=== PATIENT | male | born 1970 | race Caucasian/White ===

== ENCOUNTER 2016-09-30 15:56 | Emergency (ER) | payer OTHER ==
[2016-09-30 16:16] VITALS: BMI 19.5
[2016-09-30 16:18] VITALS: TEMP 98
--- NOTE | 2016-09-30 17:09 | ED PDOC ---
Arrival/HPI - General Chief Complaint: Abnormal Skin Integrity Time Seen by Provider: 09/30/16 16:18 Historian: Patient - History of Present Illness Narrative History of Present Illness (Text): 09/30/16 17:06 46-year-old male presents today with a three-day history of left leg rash. Patient states he has been minimally painful slightly pruritic worsening rash to the left leg. Patient states the rash started out as some bumps along the anterior aspect of the thigh. He states the rash does not spread into the groin or the testicles. He denies fevers or chills. He denies nausea or vomiting. Patient states he has a history of HIV with an undetectable viral load. Patient states he is followed by Dr. Roberto and has an appointment scheduled for next week. Past Medical History - Provider Review Nursing Documentation Reviewed: Yes - Travel History Have you recently traveled outside [place] w/in the past 3 mons?: No - Infectious Disease Hx of Infectious Diseases: None - Tetanus Immunization Tetanus Immunization: Up to Date - Cardiac Hx Hypertension: Yes - Pulmonary Hx Pneumonia: Yes - Neurological Hx Neurological Disorder: No - HEENT Hx HEENT Disorder: No - Renal Hx Renal Disorder: No Hx Renal Failure: Yes - Endocrine/Metabolic Hx Endocrine Disorders: No - Hematological/Oncological Hx Blood Disorders: Yes Hx Hepatitis C: No - Integumentary Hx Dermatological Disorder: No - Musculoskeletal/Rheumatological Hx Falls: No - Gastrointestinal Hx Gastrointestinal Disorders: No Hx Diarrhea: (X 5D 12) Hx Gastroesophageal Reflux: Yes Hx Nausea: (X 5 D 05-29-12) - Genitourinary/Gynecological Hx Genitourinary Disorders: No - Psychiatric Hx Psychophysiologic Disorder: No Hx Depression: No Hx Emotional Abuse: No Hx Physical Abuse: No Hx Substance Use: Yes (weed) - Past Surgical History Past Surgical History: No Previous - Anesthesia Hx Anesthesia: Yes Hx Anesthesia Reactions: No Hx Malignant Hyperthermia: No - Suicidal Assessment Feels Threatened In Home Enviroment: No Family/Social History - Physician Review Nursing Documentation Reviewed: Yes Family/Social History: Unknown Family HX Smoking Status: Heavy Smoker > 10 Cigarettes Daily Hx Alcohol Use: No Hx Substance Use: Yes (weed) Substance used: marijuana Allergies/Home Meds Allergies/Adverse Reactions: Allergies No Known Allergies Allergy (Verified 09/30/16 16:16) Home Medications: Home Meds Medication Instructions Recorded Confirmed Lopinavir/Ritonavir [Kaletra 1 each PO DAILY 04/27/16 05/04/16 100-25 mg Tablet] Review of Systems - Review of Systems Constitutional: absent: Fatigue, Fevers Respiratory: absent: SOB, Cough Cardiovascular: absent: Chest Pain, Palpitations Gastrointestinal: absent: Abdominal Pain, Constipation, Diarrhea, Nausea, Vomiting Musculoskeletal: absent: Arthralgias Skin: Rash, Pruritis Physical Exam Vital Signs Reviewed: Yes Vital Signs Temp Pulse Resp BP Pulse Ox 09/30/16 18:19 97 H 16 110/64 98 09/30/16 17:30 105 H 09/30/16 17:00 111 H 09/30/16 16:17 98.0 F 121 H 17 106/51 L 100 Temperature: Afebrile Blood Pressure: Normal Pulse: Tachycardic Respiratory Rate: Normal Appearance: Positive for: Well-Appearing, Non-Toxic, Comfortable Pain Distress: None Mental Status: Positive for: Alert and Oriented X 3 - Systems Exam Head: Present: Atraumatic Respiratory/Chest: Present: Clear to Auscultation Cardiovascular: Present: Tachycardic. No: Murmurs Abdomen: No: Tenderness Genitourinary Male: Present: Normal External Genitalia, Other (chaparoned by dr. Sandhu resident). No: Penile Discharge, Testicle Tenderness, Masses, Erythema , Testicle Swelling Back: Present: Normal Inspection Upper Extremity: Present: Normal ROM Lower Extremity: Present: Normal ROM Neurological: Present: Speech Normal Skin: Present: Warm, Dry, Rashes (multiple erythematous vesicles and papules in multiple clusters noted to left anterior thigh. no lesions on testicles or within the groin.) Psychiatric: Present: Alert, Oriented x 3 Medical Decision Making ED Course and Treatment: 09/30/16 17:12 46-year-old HIV positive male with a 3 day history of rash to the left anterior thigh Multiple erythematous vesicles and papules and clusters concerning for shingles Patient was seen and evaluated by Dr. Valentin Case discussed with Dr. Du covering for Dr. Roberto. Will start patient on Valtrex and have patient follow-up with Dr. Roberto on (4 days) in the clinic. Valtrex ordered by mouth Patient reassessment: Vital signs improved. Patient nontoxic well-appearing no distress. I've advised the patient to follow-up with Dr. Roberto on in the clinic. I advised taking the medications as prescribed. Advised immediate return is symptoms worsen or persist or if new concerning symptoms develop Patient verbalizes understanding of discharge instructions and need for immediate followup. impression; shingles valtrex 3 times daily x 7 days increase fluids follow up with Dr. Roberto on in the clinic Return immediately if symptoms worsen persist or if new symptoms develop: High fevers, increasing pain, increasing redness, increasing swelling, or if any other concerning symptoms develop - Medication Orders Current Medication Orders: Discontinued Medications Valacyclovir HCl (Valtrex) 1 gm PO STAT STA PRN Reason: Protocol Stop: 09/30/16 17:06 Last Admin: 09/30/16 17:58 Dose: 1 GM Disposition/Present on Arrival - Present on Arrival Any Indicators Present on Arrival: No History of DVT/PE: No History of Uncontrolled Diabetes: No Urinary Catheter: No History of Decub. Ulcer: No History Surgical Site Infection Following: None - Disposition Have Diagnosis and Disposition been Completed?: Yes Diagnosis: Shingles Disposition: HOME/ ROUTINE Disposition Time: 18:00 Patient Plan: Discharge Condition: GOOD Discharge Instructions (ExitCare): Shingles (ED) Additional Instructions: valtrex 3 times daily x 7 days increase fluids follow up with Dr. Roberto on in the clinic Return immediately if symptoms worsen persist or if new symptoms develop: High fevers, increasing pain, increasing redness, increasing swelling, or if any other concerning symptoms develop Prescriptions: valACYclovir [Valtrex] 1 gm PO TID #21 tab Referrals: Maurilio Roberto MD [Staff Provider] - Follow up with primary Sanjay Pratt MD [Primary Care Provider] - Follow up with primary
[2016-09-30 18:20] VITALS: BP 110/64; PULSE 97; RESP 16; O2SAT 98
== END 2016-09-30 18:24 | disposition home or self-care (01) ==
LOC: ED 15:56
DX: B02.9 Zoster without complications (principal)